=== PATIENT | male | born 1995 | race African-American/Black ===

== ENCOUNTER 2020-03-22 23:26 | Emergency (ER) | payer OTHER ==
[~2020-03-22] VITALS: Ht 162.6 cm; Wt 63.5 kg
[2020-03-23 00:20] VITALS: BP 130/86; TEMP 99.4
== END 2020-03-23 00:20 | disposition home or self-care (01) ==
LOC: ED 23:36
DX: H60.8X1 Other otitis externa, right ear (principal); Z20.828 Contact with and (suspected) exposure to other viral communicable diseases
CPT/HCPCS: 87635; 99285; U0002